=== PATIENT | female | born 1950 | race Caucasian/White ===

== ENCOUNTER 2019-03-27 09:15 | Inpatient (IN) ==
[2019-03-27] MEDS ORDERED: METOCLOPRAMIDE 10 MG/2 ML VIAL IV STA (09:48)
[2019-03-27] MEDS ORDERED: PANTOPRAZOLE 40 MG VIAL IV STA (09:48)
[2019-03-27] MEDS ORDERED: ONDANSETRON 4 MG/2 ML VIAL IV STA (09:48)
[2019-03-27] MEDS ORDERED: SODIUM CHLORIDE 0.9% 1,000 ML IV STA (09:48)
[2019-03-27] MEDS ORDERED: LEVOFLOXACIN INJ 750 MG in PREMIX 1 EACH IV STA (10:46)
[2019-03-27] MEDS ORDERED: metroNIDAZOLE INJ 500 MG in PREMIX 1 EACH IV STA (10:46)
[2019-03-27] MEDS ORDERED: ALBUTEROL/IPRATROPIUM 3 ML NEB RESP TX STA (10:51)
[2019-03-27 11:21] LABS: Basophils % 0.2 % (0.0-0.8); Eosinophils % 0.1 % (0.00-10.9); Hematocrit 28.6 VOL% (35.7-47.0); Hemoglobin 8.5 GM/DL (12.0-16.0); Immature Granulocytes % 1.5 %; Immature Granulocytes Absolute 0.18 #; Lymphocytes # 0.7 10*3/uL (1.4-4.0); Lymphocytes % 6.3 % (21.3-54.2); Mean Corpuscular HGB Conc 29.7 GM/DL (32-36); Mean Corpuscular Volume 105.5 FL (87-102); Monocytes % 6.4 % (1.7-12.7); Neutrophils % 85.5 % (38.7-73.9); Platelet Count 419 T/CUMM (130-400); Red Blood Count 2.71 MC/CUMM (3.8-5.5); Red Cell Distribution Width 18.6 % (9.3-17.3); White Blood Count 11.7 T/CUMM (4-12)
[2019-03-27 11:42] LABS: Alanine Aminotransferase 14 U/L (13-56); Albumin 1.8 G/DL (3.4-5.0); Alkaline Phosphatase 71 U/L (45-117); Amylase 17 U/L (25-115); Aspartate Amino Transferase 18 U/L (0-37); Blood Urea Nitrogen 16 MG/DL (7-18); Calcium 8.5 MG/DL (8.5-10.1); Glucose 67 MG/DL (74-106); Osmolality,Calculated 279.3 MOS/KG (273-304); Total Protein 6.4 G/DL (6.4-8.3); Troponin I < 0.015 NG/ML (0.00-0.045)
[2019-03-27 11:59] LABS: Apearance,Urine Slightly Hazy (Clear); Bacteria,Urine Many /HPF (Few); Blood, Urine Small mg/dL (Negative); Glucose,Urine (UA) Negative (Negative); Ketones,Urine 80 mg/dL (Negative); Mucus,Urine Many /LPF (Occasional); Nitrite,Urine Positive (Negative); Protein,Urine 100 MG/DL; Squamous Epithelial Cell,Urine Occasional /HPF (0-10); Urine Color Amber (Yellow); Urine Specific Gravity 1.033 (1.001-1.035); WBC,Urine 2 /HPF (0-6)
[2019-03-27 12:08] LABS: Bilirubin,Urine Small mg/dL (Negative)
[2019-03-27] MEDS ORDERED: ACETAMINOPHEN 325 MG TABLET PO PRN (12:40)
[2019-03-27] MEDS ORDERED: CYCLOBENZAPRINE 10 MG TABLET PO PRN (12:59)
[2019-03-27] MEDS ORDERED: MULTIVITAMIN (CENTRUM) TABLET PO SCH (13:00)
[2019-03-27] MEDS ORDERED: LEVOTHYROXINE 75 MCG TABLET PO SCH (13:00)
[2019-03-27] MEDS ORDERED: PANTOPRAZOLE 40 MG TABLET PO SCH (13:00)
[2019-03-27] MEDS: DEXTROSE 5% NACL 0.45% 1,000 ML IV SCH ×2 (13:10→21:35)
[2019-03-27] MEDS ORDERED: ALBUTEROL 2.5 MG/3 ML NEB RESP TX PRN ×2 (14:37→15:00)
[2019-03-27] MEDS ORDERED: POTASSIUM CHLORIDE 20 MEQ TABLET PO PRN (14:40)
[2019-03-27] MEDS ORDERED: cefTRIAXone 1,000 MG in SYRINGE 1 EACH IV SCH (15:00)
[2019-03-27 15:05] LABS: Neutrophils,Peritoneal Fluid 40 %; RBC,Peritoneal Fluid < 1 T/CUMM
[2019-03-27] MEDS: cefTRIAXone 1,000 MG in SYRINGE 1 EACH IV SCH (15:21)
[2019-03-27] MEDS: ENOXAPARIN 40 MG/0.4 ML SYRINGE SUBCUT SCH (15:21)
[2019-03-27] MEDS ORDERED: DEXTROSE 10% 250 ML BAG IV PRN (15:37)
[2019-03-27] MEDS ORDERED: GLUCAGON 1 MG VIAL IM PRN (15:37)
[2019-03-27] MEDS ORDERED: TRACE ELEMENTS (5) 1 ML, MULTIVITAMIN INJ 10 ML in AMINO ACIDS/DEXT/LYTES 5-15% 2,000 ML IV SCH (17:00)
[2019-03-27] MEDS: FAT EMULSION 20% 250 ML IV SCH (17:09)
[2019-03-27] MEDS: POTASSIUM CHLORIDE RIDER 10 MEQ in PREMIX 1 EACH IV PRN ×2 (17:37→23:03)
[2019-03-27] MEDS ORDERED: DEXTROSE 10% 1,000 ML IV PRN (18:00)
[2019-03-28] MEDS: PROMETHAZINE INJ 25 MG in SODIUM CHLORIDE 0.9% 50 ML IV PRN ×3 (00:44→17:18)
[2019-03-28] MEDS: POTASSIUM CHLORIDE RIDER 10 MEQ in PREMIX 1 EACH IV PRN (02:03)
[2019-03-28] MEDS: MORPHINE 4 MG/1 ML VIAL IV PRN ×2 (02:44→18:36)
[2019-03-28 05:27] LABS: Basophils % 0.2 % (0.0-0.8); Eosinophils # 0.1 10*3/uL (0.0-0.87); Eosinophils % 0.7 % (0.00-10.9); Hematocrit 25.5 VOL% (35.7-47.0); Hemoglobin 7.6 GM/DL (12.0-16.0); Immature Granulocytes % 3.1 %; Immature Granulocytes Absolute 0.38 #; Lymphocytes # 1.2 10*3/uL (1.4-4.0); Lymphocytes % 9.7 % (21.3-54.2); Mean Corpuscular HGB Conc 29.8 GM/DL (32-36); Mean Corpuscular Volume 106.3 FL (87-102); Monocytes % 8.4 % (1.7-12.7); NRBC # 0.02 10*3/uL; Neutrophils % 77.9 % (38.7-73.9); Platelet Count 423 T/CUMM (130-400); Red Cell Distribution Width 18.3 % (9.3-17.3); White Blood Count 12.1 T/CUMM (4-12)
[2019-03-28 05:42] LABS: Alanine Aminotransferase 10 U/L (13-56); Albumin 1.4 G/DL (3.4-5.0); Alkaline Phosphatase 56 U/L (45-117); Aspartate Amino Transferase 14 U/L (0-37); Bilirubin,Total < 0.39 MG/DL (0.2-1.0); Blood Urea Nitrogen 10 MG/DL (7-18); Calcium 7.5 MG/DL (8.5-10.1); Glucose 200 MG/DL (74-106); HDL Cholesterol 28 MG/DL (40-60); Osmolality,Calculated 279.7 MOS/KG (273-304); Risk Ratio 1.82; Total Protein 4.8 G/DL (6.4-8.3); Triglycerides 49 MG/DL (2-150); VLDL CHOLESTEROL 9.8 MG/DL
[2019-03-28 05:46] LABS: Calcium 7.5 MG/DL (8.5-10.1); Osmolality,Calculated 279.7 MOS/KG (273-304); Prealbumin 8.6 MG/DL (20-40)
[2019-03-28] MEDS: LEVOTHYROXINE 100 MCG VIAL IV SCH (07:35)
[2019-03-28] MEDS ORDERED: SODIUM CHLORIDE 0.9% 1,000 ML IV PRN (07:35)
[2019-03-28] MEDS ORDERED: POTASSIUM PHOSPHATE 15 MMOL in SODIUM CHLORIDE 0.9% 100 ML IV ONE (07:36)
[2019-03-28] MEDS: DEXTROSE 5% NACL 0.45% 1,000 ML IV SCH (09:23)
[2019-03-28] MEDS: PANTOPRAZOLE 40 MG VIAL IV SCH (09:50)
[2019-03-28] MEDS: INSULIN REGULAR 100 UNIT/ML SUBCUT SCH ×2 (14:31→19:09)
[2019-03-28] MEDS: cefTRIAXone 1,000 MG in SYRINGE 1 EACH IV SCH (17:18)
[2019-03-28] MEDS: ENOXAPARIN 40 MG/0.4 ML SYRINGE SUBCUT SCH (17:18)
[2019-03-28] MEDS: TRACE ELEMENTS (5) 1 ML, MULTIVITAMIN INJ 10 ML in AMINO ACIDS/DEXT/LYTES 5-15% 2,000 ML IV SCH (17:49)
[2019-03-28] MEDS: FAT EMULSION 20% 250 ML IV SCH (17:49)
[2019-03-28] MEDS: LORazepam 2 MG/1 ML VIAL IV PRN (21:32)
[2019-03-29] MEDS: DEXTROSE 5% NACL 0.45% 1,000 ML IV SCH (03:05)
[2019-03-29] MEDS: PROMETHAZINE INJ 25 MG in SODIUM CHLORIDE 0.9% 50 ML IV PRN ×2 (05:40→15:50)
[2019-03-29 06:19] LABS: Basophils % 0.3 % (0.0-0.8); Eosinophils # 0.1 10*3/uL (0.0-0.87); Eosinophils % 0.6 % (0.00-10.9); Hematocrit 35.8 VOL% (35.7-47.0); Immature Granulocytes % 4.5 %; Immature Granulocytes Absolute 0.67 #; Lymphocytes # 1.1 10*3/uL (1.4-4.0); Lymphocytes % 7.2 % (21.3-54.2); Mean Corpuscular HGB Conc 32.4 GM/DL (32-36); Monocytes % 7.6 % (1.7-12.7); NRBC # 0.03 10*3/uL; Neutrophils % 79.8 % (38.7-73.9); Red Cell Distribution Width 19.9 % (9.3-17.3); White Blood Count 14.9 T/CUMM (4-12)
[2019-03-29 06:27] LABS: Hemoglobin 11.6 GM/DL (12.0-16.0); Red Blood Count 3.73 MC/CUMM (3.8-5.5)
[2019-03-29 06:28] LABS: Platelet Count 337 T/CUMM (130-400)
[2019-03-29 06:41] LABS: Alanine Aminotransferase 11 U/L (13-56); Albumin 1.4 G/DL (3.4-5.0); Alkaline Phosphatase 68 U/L (45-117); Aspartate Amino Transferase 11 U/L (0-37); Bilirubin,Total < 0.39 MG/DL (0.2-1.0); Blood Urea Nitrogen 12 MG/DL (7-18); Calcium 7.6 MG/DL (8.5-10.1); Glucose 148 MG/DL (74-106); Osmolality,Calculated 275.8 MOS/KG (273-304); Total Protein 5.5 G/DL (6.4-8.3)
[2019-03-29 06:43] LABS: Band Neutrophils 1 % (0-10); Hypochromasia Slight; Lymphocytes 8 % (20-55); Segmented Neutrophils 84 % (50-85); Total Cells Counted 100
[2019-03-29 06:44] LABS: Macrocytosis 1+
[2019-03-29 06:45] LABS: Anisocytosis 1+
[2019-03-29] MEDS: INSULIN REGULAR 100 UNIT/ML SUBCUT SCH ×5 (06:54→23:10)
[2019-03-29] MEDS: LEVOTHYROXINE 100 MCG VIAL IV SCH (06:54)
[2019-03-29] MEDS: PANTOPRAZOLE 40 MG VIAL IV SCH (09:52)
[2019-03-29] MEDS: ONDANSETRON 4 MG/2 ML VIAL IV PRN (09:57)
[2019-03-29] MEDS ORDERED: ACETAMINOPHEN 650 MG SUPP RECTAL ONE (11:57)
[2019-03-29] MEDS: MORPHINE 4 MG/1 ML VIAL IV PRN ×2 (13:02→19:41)
[2019-03-29] MEDS: LEVOFLOXACIN INJ 750 MG in PREMIX 1 EACH IV SCH (13:02)
[2019-03-29] MEDS: PIPERACILLIN/TAZOBACTAM 3,375 MG in SODIUM CHLORIDE 0.9% 100 ML IV SCH ×2 (13:49→22:45)
[2019-03-29] MEDS: FAT EMULSION 20% 250 ML IV SCH (14:00)
[2019-03-29] MEDS: ENOXAPARIN 40 MG/0.4 ML SYRINGE SUBCUT SCH (14:04)
[2019-03-29] MEDS: ALBUTEROL/IPRATROPIUM 3 ML NEB RESP TX SCH ×2 (14:09→20:00)
[2019-03-29] MEDS ORDERED: ACETAMINOPHEN 650 MG SUPP RECTAL PRN (15:54)
[2019-03-29] MEDS: TRACE ELEMENTS (5) 1 ML, MULTIVITAMIN INJ 10 ML in AMINO ACIDS/DEXT/LYTES 5-15% 2,000 ML IV SCH (19:51)
[2019-03-30] MEDS: ALBUTEROL/IPRATROPIUM 3 ML NEB RESP TX SCH ×4 (00:38→19:51)
[2019-03-30] MEDS: ONDANSETRON 4 MG/2 ML VIAL IV PRN (02:13)
[2019-03-30 05:47] LABS: Basophils % 0.1 % (0.0-0.8); Eosinophils % 0.1 % (0.00-10.9); Hematocrit 33.1 VOL% (35.7-47.0); Hemoglobin 10.6 GM/DL (12.0-16.0); Immature Granulocytes % 2.5 %; Immature Granulocytes Absolute 0.51 #; Lymphocytes # 0.9 10*3/uL (1.4-4.0); Lymphocytes % 4.2 % (21.3-54.2); Mean Corpuscular Volume 96.2 FL (87-102); Mean Platelet Volume 9.6 FL (9.6-12.0); Monocytes % 5.6 % (1.7-12.7); Neutrophils % 87.5 % (38.7-73.9); Platelet Count 345 T/CUMM (130-400); Red Blood Count 3.44 MC/CUMM (3.8-5.5); Red Cell Distribution Width 19.5 % (9.3-17.3); White Blood Count 20.6 T/CUMM (4-12)
[2019-03-30] MEDS: PIPERACILLIN/TAZOBACTAM 3,375 MG in SODIUM CHLORIDE 0.9% 100 ML IV SCH ×3 (05:47→21:34)
[2019-03-30] MEDS: INSULIN REGULAR 100 UNIT/ML SUBCUT SCH ×3 (05:47→20:23)
[2019-03-30] MEDS: MORPHINE 4 MG/1 ML VIAL IV PRN ×4 (05:48→21:52)
[2019-03-30 06:06] LABS: Osmolality,Calculated 280.4 MOS/KG (273-304)
[2019-03-30 06:08] LABS: Hypochromasia Slight; Lymphocytes 5 % (20-55); Macrocytosis Slight; Platelet Estimate Adequate; Segmented Neutrophils 87 % (50-85); Total Cells Counted 100
[2019-03-30] MEDS: LEVOTHYROXINE 100 MCG VIAL IV SCH (06:31)
[2019-03-30] MEDS: PANTOPRAZOLE 40 MG VIAL IV SCH (09:24)
[2019-03-30] MEDS: PROMETHAZINE INJ 25 MG in SODIUM CHLORIDE 0.9% 50 ML IV PRN ×2 (09:35→14:53)
[2019-03-30] MEDS: ENOXAPARIN 40 MG/0.4 ML SYRINGE SUBCUT SCH (14:53)
[2019-03-30] MEDS: LEVOFLOXACIN INJ 750 MG in PREMIX 1 EACH IV SCH (17:34)
[2019-03-30] MEDS: TRACE ELEMENTS (5) 1 ML, MULTIVITAMIN INJ 10 ML in AMINO ACIDS/DEXT/LYTES 5-15% 2,000 ML IV SCH (17:35)
[2019-03-30] MEDS: FAT EMULSION 20% 250 ML IV SCH (17:35)
[2019-03-30] MEDS: LORazepam 2 MG/1 ML VIAL IV PRN (21:51)
[2019-03-31] MEDS: ALBUTEROL/IPRATROPIUM 3 ML NEB RESP TX SCH ×4 (00:40→19:45)
[2019-03-31] MEDS: INSULIN REGULAR 100 UNIT/ML SUBCUT SCH ×4 (01:36→17:48)
[2019-03-31] MEDS: MORPHINE 4 MG/1 ML VIAL IV PRN ×4 (03:50→21:30)
[2019-03-31 04:49] LABS: Basophils # 0.1 10*3/uL (0.0-0.2); Basophils % 0.4 % (0.0-0.8); Eosinophils # 0.2 10*3/uL (0.0-0.87); Hemoglobin 10.4 GM/DL (12.0-16.0); Immature Granulocytes Absolute 0.69 #; Lymphocytes # 0.9 10*3/uL (1.4-4.0); Lymphocytes % 5.5 % (21.3-54.2); Mean Corpuscular HGB Conc 30.6 GM/DL (32-36); Mean Corpuscular Volume 98.6 FL (87-102); Mean Platelet Volume 9.5 FL (9.6-12.0); Monocytes % 8.6 % (1.7-12.7); Neutrophils % 80.5 % (38.7-73.9); Platelet Count 357 T/CUMM (130-400); Red Blood Count 3.45 MC/CUMM (3.8-5.5); Red Cell Distribution Width 18.7 % (9.3-17.3); White Blood Count 17.1 T/CUMM (4-12)
[2019-03-31 05:28] LABS: Hypochromasia Slight; Lymphocytes 6 % (20-55); Platelet Estimate Adequate; Segmented Neutrophils 83 % (50-85); Total Cells Counted 100
[2019-03-31 05:29] LABS: Macrocytosis Slight
[2019-03-31] MEDS: PIPERACILLIN/TAZOBACTAM 3,375 MG in SODIUM CHLORIDE 0.9% 100 ML IV SCH (06:01)
[2019-03-31] MEDS: LEVOTHYROXINE 100 MCG VIAL IV SCH (06:06)
[2019-03-31] MEDS ORDERED: BISACODYL 10 MG SUPP RECTAL ONE (06:47)
[2019-03-31] MEDS ORDERED: LEVOFLOXACIN INJ 500 MG in PREMIX 1 EACH IV ONE (08:00)
[2019-03-31] MEDS: ONDANSETRON 4 MG/2 ML VIAL IV PRN ×2 (08:18→14:43)
[2019-03-31] MEDS: PANTOPRAZOLE 40 MG VIAL IV SCH (08:18)
[2019-03-31] MEDS: FAT EMULSION 20% 250 ML IV SCH (14:22)
[2019-03-31] MEDS: ENOXAPARIN 40 MG/0.4 ML SYRINGE SUBCUT SCH (16:56)
[2019-03-31] MEDS: TRACE ELEMENTS (5) 1 ML, MULTIVITAMIN INJ 10 ML in AMINO ACIDS/DEXT/LYTES 5-15% 2,000 ML IV SCH (17:48)
[2019-03-31] MEDS: LORazepam 2 MG/1 ML VIAL IV PRN (18:44)
[2019-04-01] MEDS: INSULIN REGULAR 100 UNIT/ML SUBCUT SCH ×4 (00:03→17:14)
[2019-04-01] MEDS: ALBUTEROL/IPRATROPIUM 3 ML NEB RESP TX SCH ×4 (02:22→19:05)
[2019-04-01 06:00] LABS: Basophils # 0.1 10*3/uL (0.0-0.2); Basophils % 0.4 % (0.0-0.8); Eosinophils # 0.1 10*3/uL (0.0-0.87); Hematocrit 31.9 VOL% (35.7-47.0); Immature Granulocytes % 4.4 %; Immature Granulocytes Absolute 0.59 #; Lymphocytes # 0.7 10*3/uL (1.4-4.0); Lymphocytes % 5.5 % (21.3-54.2); Mean Corpuscular HGB Conc 31.3 GM/DL (32-36); Mean Corpuscular Volume 96.1 FL (87-102); Mean Platelet Volume 9.8 FL (9.6-12.0); Monocytes % 9.9 % (1.7-12.7); Neutrophils % 78.8 % (38.7-73.9); Platelet Count 422 T/CUMM (130-400); Red Blood Count 3.32 MC/CUMM (3.8-5.5); Red Cell Distribution Width 18.3 % (9.3-17.3); White Blood Count 13.5 T/CUMM (4-12)
[2019-04-01] MEDS: LEVOTHYROXINE 100 MCG VIAL IV SCH (06:34)
[2019-04-01 06:37] LABS: Band Neutrophils 3 % (0-10); Eosinophils 1 % (0-10); Lymphocytes 7 % (20-55); Metamyelocytes 2 %; Nucleated Red Blood Cells 1 (0-5); Platelet Estimate Increased; Segmented Neutrophils 79 % (50-85); Total Cells Counted 100
[2019-04-01] MEDS: MORPHINE 4 MG/1 ML VIAL IV PRN ×3 (07:17→20:55)
[2019-04-01] MEDS: PANTOPRAZOLE 40 MG VIAL IV SCH (08:52)
[2019-04-01] MEDS: ONDANSETRON 4 MG/2 ML VIAL IV PRN ×3 (10:49→20:56)
[2019-04-01] MEDS: FAT EMULSION 20% 250 ML IV SCH (14:39)
[2019-04-01] MEDS: ENOXAPARIN 40 MG/0.4 ML SYRINGE SUBCUT SCH (14:47)
[2019-04-01] MEDS: TRACE ELEMENTS (5) 1 ML, MULTIVITAMIN INJ 10 ML in AMINO ACIDS/DEXT/LYTES 5-15% 2,000 ML IV SCH (17:27)
[2019-04-02] MEDS: MORPHINE 4 MG/1 ML VIAL IV PRN ×2 (00:45→05:52)
[2019-04-02] MEDS: ALBUTEROL/IPRATROPIUM 3 ML NEB RESP TX SCH ×2 (00:49→07:31)
[2019-04-02] MEDS: LORazepam 2 MG/1 ML VIAL IV PRN (02:02)
[2019-04-02] MEDS: INSULIN REGULAR 100 UNIT/ML SUBCUT SCH ×3 (02:13→11:25)
[2019-04-02] MEDS: ONDANSETRON 4 MG/2 ML VIAL IV PRN (05:51)
[2019-04-02 06:08] LABS: Calcium 8.7 MG/DL (8.5-10.1); Osmolality,Calculated 280.4 MOS/KG (273-304)
[2019-04-02 06:13] LABS: Prealbumin 6.7 MG/DL (20-40)
[2019-04-02] MEDS: PANTOPRAZOLE 40 MG VIAL IV SCH (09:37)
[2019-04-02] MEDS: LEVOTHYROXINE 100 MCG VIAL IV SCH (09:38)
[2019-04-02] MEDS ORDERED: HEPARIN LOCK FLUSH 500 UNIT/5 ML SYRINGE IV PRN (11:46)
[2019-04-02 11:47] VITALS: BP 117/70
== END 2019-04-02 15:28 | disposition hospice, home (50) | DRG 374 ==
LOC: N.ED 09:15 → N.EDINP 12:40 → SUATTDRO 12:40 → N.4E 13:12
PROVIDERS: ADMIT Internal Medicine Cardiovascular Disease; ATTEND Internal Medicine